=== PATIENT | male | born 1950 | race African-American/Black ===

== ENCOUNTER 2019-08-01 16:47 | Emergency (ER) | payer MEDICARE ==
[~2019-08-01] VITALS: Ht 177.8 cm; Wt 83.9 kg
[2019-08-01 22:01] VITALS: BP 145/75
== END 2019-08-01 22:07 | disposition home or self-care (01) ==
LOC: ER 16:53
DX: T16.1XXA Foreign body in right ear, initial encounter (principal); W22.8XXA Striking against or struck by other objects, initial encounter; Y93.89 Activity, other specified; Y92.89 Other specified places as the place of occurrence of the external cause; Y99.8 Other external cause status